=== PATIENT | female | born 1980 | race Two or more races ===

== ENCOUNTER 2020-10-26 15:53 | Emergency (ER) | payer BC, OTHER ==
[~2020-10-26] VITALS: Ht 162.6 cm; Wt 106.6 kg
[2020-10-26 17:08] VITALS: BP 144/90
== END 2020-10-26 19:26 | disposition home or self-care (01) ==
LOC: ER 15:53
DX: U07.1 COVID-19 (principal)
CPT/HCPCS: 36415; 71045; 87426